=== PATIENT | male | born 1955 | race Hispanic/Latino ===

== ENCOUNTER 2023-03-02 13:50 | Outpatient (RCR) | payer MEDICARE | END 2023-03-09 | LOC: OT 13:50 | PROVIDERS: ATTEND Physician Assistant | DX: S46.012D Strain of muscle(s) and tendon(s) of the rotator cuff of left shoulder, subsequent encounter (principal); M25.512 Pain in left shoulder; M25.612 Stiffness of left shoulder, not elsewhere classified; R59.1 Generalized enlarged lymph nodes ==

== ENCOUNTER 2023-03-10 10:22 | Outpatient (RCR) | payer MEDICARE | END 2023-04-08 | LOC: OT 10:22 | PROVIDERS: ATTEND Physician Assistant | DX: S46.012A Strain of muscle(s) and tendon(s) of the rotator cuff of left shoulder, initial encounter (principal) ==

== ENCOUNTER 2024-04-01 18:36 | Emergency (ER) | payer MEDICARE ==
[~2024-04-01] VITALS: Ht 167.6 cm; Wt 47.2 kg
[2024-04-01 19:18] VITALS: TEMP 97.5
[2024-04-01] MEDS ORDERED: SODIUM CHLORIDE FLUSH 10 ML SYR INJ PRN (19:30)
[2024-04-01] MEDS ORDERED: ONDANSETRON HCL INJ 2MG/ML 2ML 2 MG/ML VIAL ONE (19:32)
[2024-04-01] MEDS: MECLIZINE HCL 12.5 MG TAB PO ONE (19:35)
[2024-04-01] MEDS: ONDANSETRON HCL INJ 2MG/ML 2ML 2 MG/ML VIAL IV STA (19:36)
[2024-04-01 20:11] LABS: BASOPHILS % 0.4 % (0.0-1.0); EOSINOPHILS # (AUTO) 0.1 (0.0-0.4); EOSINOPHILS % 1.6 % (0.0-6.0); HEMATOCRIT 43.5 % (38.2-49.6); HEMOGLOBIN 13.8 g/dL (14.0-18.0); LYMPHOCYTES % 10.8 % (18.0-39.1); MEAN CORPUSCULAR HEMOGLOBIN 28.7 pg (28-32); MEAN CORPUSCULAR HGB CONC 31.7 g/dL (31-35); MEAN CORPUSCULAR VOLUME 90.4 fL (81-99); MONOCYTES # (AUTO) 0.4 (0.2-0.8); MONOCYTES % 4.3 % (4.4-11.3); NEUTROPHILS # (AUTO) 7.4 (2.1-6.9); NEUTROPHILS % 82.7 % (38.7-80.0); PLATELET COUNT 241 x10e3/uL (140-360); RED BLOOD COUNT 4.81 x10e6/uL (4.3-5.7); RED CELL DISTRIBUTION WIDTH 13.5 % (11.7-14.4)
[2024-04-01 20:33] LABS: ALANINE AMINOTRANSFERASE 17 IU/L (0-55); ALBUMIN 3.8 g/dL (3.5-5.0); ALBUMIN/GLOBULIN RATIO 1.1 (0.8-2.0); ALKALINE PHOSPHATASE 96 IU/L (40-150); ANION GAP 14.2 mmol/L (8-16); BILIRUBIN,TOTAL 0.5 mg/dL (0.2-1.2); BLOOD UREA NITROGEN 16 mg/dL (7-26); BUN/CREATININE RATIO 20 (6-25); CALCIUM 9.6 mg/dL (8.4-10.2); CARBON DIOXIDE 25 mmol/L (22-29); CHLORIDE 106 mmol/L (98-107); CREATINE KINASE 76 IU/L (30-200); CREATININE, SERUM 0.82 mg/dL (0.72-1.25); EST GLOMERULAR FILTRATION RATE 96 ML/MIN (>=60); GLUCOSE 123 mg/dL (74-118); POTASSIUM 4.2 mmol/L (3.5-5.1); SODIUM 141 mmol/L (136-145); TOTAL PROTEIN 7.3 g/dL (6.5-8.1)
[2024-04-01] MEDS ORDERED: IOPAMIDOL 370 MG/ML 100 ML INFUS..BTL INJ ONE (20:37)
[2024-04-01 20:40] LABS: TROPONIN I < 0.001 ng/mL (0-0.300)
[2024-04-01] MEDS ORDERED: DOXYCYCLINE HY100 MG PO (22:36)
[2024-04-01] MEDS ORDERED: ONDANSETRON ODT4 MG SL (22:36)
[2024-04-01] MEDS ORDERED: ANTIVERT25 M1 PO (22:36)
[2024-04-01 22:45] VITALS: PULSE 54; RESP 16; O2SAT 100
[2024-04-01] MEDS: DOXYCYCLINE HYCLATE TABLET 100 MG TAB PO ONE (22:49)
== END 2024-04-01 22:56 | disposition home or self-care (01) ==
LOC: ER 18:43
DX: R06.02 Shortness of breath (principal); J18.9 Pneumonia, unspecified organism; R42 Dizziness and giddiness; H40.9 Unspecified glaucoma; Z87.19 Personal history of other diseases of the digestive system
CPT/HCPCS: 36415; 70450; 70496; 70498; 71045; 80053; 82550; 83880; 84484; 85025; 93005; 99284; J2405; J8597; Q9967

== ENCOUNTER 2024-10-31 17:13 | Emergency (ER) | payer MEDICARE ==
[~2024-10-31] VITALS: Ht 167.6 cm; Wt 47.2 kg
[~2024-10-31 17:13] MED LIST: ANTIVERT25 M1 PO; DOXYCYCLINE HY100 MG PO; ONDANSETRON ODT4 MG SL
[2024-10-31 17:46] LABS: STREPTOCOCCUS GRP A ANTIGEN NEGATIVE (NEGATIVE)
[2024-10-31 17:55] LABS: CORONAVIRUS COVID-19 AG POSITIVE (NEGATIVE); INFLUENZA A AG NEGATIVE (NEGATIVE); INFLUENZA B AG NEGATIVE (NEGATIVE)
[2024-10-31] MEDS ORDERED: PAXLOVID 150-11 EAC2 PO (19:27)
[2024-10-31] MEDS ORDERED: VENTOLIN HFA18 GM INH (19:27)
[2024-10-31 20:05] VITALS: PULSE 74; RESP 18; TEMP 98.3; O2SAT 98
== END 2024-10-31 20:09 | disposition home or self-care (01) ==
LOC: ER 18:09
DX: R50.9 Fever, unspecified (principal); U07.1 COVID-19; R05.9 Cough, unspecified; R53.81 Other malaise; H40.9 Unspecified glaucoma; Z87.19 Personal history of other diseases of the digestive system
CPT/HCPCS: 71046; 83518; 87070; 99283